=== PATIENT | female | born 1980 | race Caucasian/White ===

== ENCOUNTER 2016-10-02 08:45 | Day surgery (SDC) | payer OTHER ==
[~2016-10-02] VITALS: Ht 157.5 cm; Wt 70.7 kg
[~2016-10-02 08:45] MED LIST: CLONAZEPAM0.5 MG PO; DULOXETINE HCL60 MG PO; ELAVIL50 MG PO; FIORICET 50-301 EACH PO; FIORICET,ESG1 TABLET PO; GABAPENTIN600 MG PO; IMITREX6 MG/0.53 SC; MOTRIN600 MG PO; MOTRIN800 MG PO; NEURONTIN300 MG PO; OXCARBAZEPINE600 MG PO; PERCOCET 5/31 TABLET PO; TEGRETOL200 MG PO; TOPIRAMATE50 MG PO; TRILEPTAL600 MG PO; ZOFRAN ODT4 MG PO
[2016-10-02 09:14] VITALS: BP 114/60
[2016-10-02 15:00] VITALS: BP 106/58
[2016-10-02 15:46] VITALS: BP 106/58
== END 2016-10-02 15:58 | disposition home or self-care (01) ==
LOC: SDC 08:45
DX: T85.9XXA Unspecified complication of internal prosthetic device, implant and graft, initial encounter (principal); Y83.8 Other surgical procedures as the cause of abnormal reaction of the patient, or of later complication, without mention of misadventure at the time of the procedure; Z98.1 Arthrodesis status; F17.200 Nicotine dependence, unspecified, uncomplicated; K21.9 Gastro-esophageal reflux disease without esophagitis; G40.909 Epilepsy, unspecified, not intractable, without status epilepticus
CPT/HCPCS: 72020; 76000; J0330; J0690; J1170; J1885; J2250; J2930; J3010; S0020

== ENCOUNTER 2016-11-07 09:52 | Day surgery (SDC) | payer OTHER ==
[~2016-11-07] VITALS: Ht 157.5 cm; Wt 70.8 kg
[~2016-11-07 09:52] MED LIST changes: +FLEXERIL5 MG PO
== END 2016-11-07 12:12 | disposition home or self-care (01) ==
LOC: PAIN 09:52
PROC: 3E0S33Z Introduction of Anti-inflammatory into Epidural Space, Percutaneous Approach (ICD-10-PCS; principal; 2016-11-07)
DX: M54.12 Radiculopathy, cervical region (principal); M50.223 Other cervical disc displacement at C6-C7 level; R20.0 Anesthesia of skin; F41.1 Generalized anxiety disorder; K21.9 Gastro-esophageal reflux disease without esophagitis; G25.81 Restless legs syndrome; M54.5 Low back pain
CPT/HCPCS: J1030; J2250; J3010

== ENCOUNTER 2017-03-11 07:32 | Day surgery (SDC) | payer OTHER ==
[~2017-03-11] VITALS: Ht 157.5 cm; Wt 69.5 kg
[~2017-03-11 07:32] MED LIST changes: +NAPROSYN500 MG PO; +PERCOCET 7.51 TABLET PO
[2017-03-11 08:28] VITALS: BP 99/54
[2017-03-11 11:00] VITALS: BP 91/65
[2017-03-11 11:47] VITALS: BP 111/64
== END 2017-03-11 12:04 | disposition home or self-care (01) ==
LOC: SDC 07:32
PROC: 0U5B8ZZ Destruction of Endometrium, Via Natural or Artificial Opening Endoscopic (ICD-10-PCS; principal; 2017-03-11)
DX: N94.6 Dysmenorrhea, unspecified (principal); N92.0 Excessive and frequent menstruation with regular cycle; K21.9 Gastro-esophageal reflux disease without esophagitis; G40.909 Epilepsy, unspecified, not intractable, without status epilepticus; F17.210 Nicotine dependence, cigarettes, uncomplicated; Z82.5 Family history of asthma and other chronic lower respiratory diseases
CPT/HCPCS: 88305; J1100; J1170; J1885; J2250; J2405; J3010

== ENCOUNTER 2017-05-06 09:40 | Day surgery (SDC) | payer OTHER ==
[~2017-05-06] VITALS: Ht 157.5 cm; Wt 69.4 kg
== END 2017-05-06 10:58 | disposition home or self-care (01) ==
LOC: PAIN 09:40 → SDC 10:00 → PAIN 10:00
DX: M47.816 Spondylosis without myelopathy or radiculopathy, lumbar region (principal); M54.5 Low back pain; M96.1 Postlaminectomy syndrome, not elsewhere classified; M50.121 Cervical disc disorder at C4-C5 level with radiculopathy; G40.909 Epilepsy, unspecified, not intractable, without status epilepticus; K21.9 Gastro-esophageal reflux disease without esophagitis; M79.1 Myalgia; F17.210 Nicotine dependence, cigarettes, uncomplicated; Z79.891 Long term (current) use of opiate analgesic
CPT/HCPCS: J1030; J2250; J3010; S0020

== ENCOUNTER 2017-08-05 09:48 | Day surgery (SDC) | payer OTHER ==
[~2017-08-05] VITALS: Ht 157.5 cm; Wt 70.8 kg
== END 2017-08-05 11:13 | disposition home or self-care (01) ==
LOC: PAIN 09:48 → SDC 10:30 → PAIN 10:30
DX: M47.816 Spondylosis without myelopathy or radiculopathy, lumbar region (principal); M54.5 Low back pain; G89.29 Other chronic pain; M50.123 Cervical disc disorder at C6-C7 level with radiculopathy; R20.2 Paresthesia of skin; G40.909 Epilepsy, unspecified, not intractable, without status epilepticus; M79.1 Myalgia; M96.1 Postlaminectomy syndrome, not elsewhere classified; G25.81 Restless legs syndrome; E55.9 Vitamin D deficiency, unspecified; F17.200 Nicotine dependence, unspecified, uncomplicated
CPT/HCPCS: J1030; J2250; J3010; S0020

== ENCOUNTER 2017-09-02 09:13 | Day surgery (SDC) | payer OTHER ==
[~2017-09-02] VITALS: Ht 157.5 cm; Wt 70.8 kg
== END 2017-09-02 10:55 | disposition home or self-care (01) ==
LOC: PAIN 09:13 → SDC 09:45 → PAIN 09:45
DX: M47.816 Spondylosis without myelopathy or radiculopathy, lumbar region (principal); M54.5 Low back pain; G89.29 Other chronic pain; M47.22 Other spondylosis with radiculopathy, cervical region; G40.909 Epilepsy, unspecified, not intractable, without status epilepticus; M96.1 Postlaminectomy syndrome, not elsewhere classified; M79.1 Myalgia; K21.9 Gastro-esophageal reflux disease without esophagitis; F17.200 Nicotine dependence, unspecified, uncomplicated
CPT/HCPCS: J1030; J2250; J3010; S0020

== ENCOUNTER 2017-09-16 12:15 | Day surgery (SDC) | payer OTHER ==
[~2017-09-16] VITALS: Ht 157.5 cm; Wt 70.8 kg
[~2017-09-16 12:15] MED LIST changes: +HUMULIN R500 UNITS/ SC
== END 2017-09-16 14:12 | disposition home or self-care (01) ==
LOC: PAIN 12:15 → SDC 13:00 → PAIN 14:12
DX: M47.816 Spondylosis without myelopathy or radiculopathy, lumbar region (principal); M54.5 Low back pain; G89.29 Other chronic pain; M50.123 Cervical disc disorder at C6-C7 level with radiculopathy; M79.1 Myalgia; F17.200 Nicotine dependence, unspecified, uncomplicated; K21.9 Gastro-esophageal reflux disease without esophagitis; Z79.891 Long term (current) use of opiate analgesic
CPT/HCPCS: J1030; J1885; J2250; J3010; S0020